=== PATIENT | male | born 1995 | race African-American/Black ===

== ENCOUNTER 2017-08-03 20:47 | Emergency (ER) | payer OTHER ==
[~2017-08-03] VITALS: Ht 177.8 cm; Wt 81.6 kg
[2017-08-03 21:40] VITALS: BP 129/79
[2017-08-03] MEDS ORDERED: Acetaminophen 500mg (ES) tab ORAL ONE (21:45)
[2017-08-03] MEDS ORDERED: ROBAXIN500 MG PO (22:52)
[2017-08-03] MEDS ORDERED: IBUPROFEN600 MG ORAL (22:52)
[2017-08-03 23:08] VITALS: BP 125/83
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
--- NOTE | 2017-08-04 10:59 | Diagnostic Imaging Report ---
Indication: PAIN Technique: One view of the chest Comparison: none Findings: Lungs and pleural spaces are clear. Heart size is normal Impression: No acute process
--- NOTE | 2017-08-04 10:59 | Diagnostic Imaging Report ---
Indication: PAIN Technique: 4 views of the lumbar spine Comparison: None Findings: Vertebral body heights are preserved. The disc spaces are preserved. Sacroiliac joint spaces are preserved. Pedicles are intact. Facet joint spaces are preserved. No acute fractures. No dislocations. Impression: Negative
--- NOTE | 2017-08-04 11:14 | Diagnostic Imaging Report ---
Indication: PAIN Technique: 4 views of the cervical spine Comparison: none Findings: Bony alignment is normal. No prevertebral soft tissue swelling. Vertebral body heights are preserved. Disc spaces are preserved. Neural foramina are preserved. No acute fractures. No dislocations Impression: Negative
== END 2017-08-03 23:08 | disposition home or self-care (01) ==
LOC: EMR 21:35
DX: S16.1XXA Strain of muscle, fascia and tendon at neck level, initial encounter (principal); S39.012A Strain of muscle, fascia and tendon of lower back, initial encounter; V43.12XA Car passenger injured in collision with other type car in nontraffic accident, initial encounter; Y93.9 Activity, unspecified; Y92.410 Unspecified street and highway as the place of occurrence of the external cause
CPT/HCPCS: 71010; 72050; 72110; 99284